=== PATIENT | male | born 1955 | race Caucasian/White ===

== ENCOUNTER 2024-06-19 12:14 | Emergency (ER) | payer MEDICARE, SELFPAY ==
[2024-06-19 12:17] VITALS: BP 135/89
--- NOTE | 2024-06-19 12:47 | ED.GENMED ---
History of Present Illness
General
Chief Complaint: Catheter/Tube Problem
Source: half-way ([facility] nurse, Svetlana)
Exam Limitations: none
Time Seen by Provider: 06/19/24 12:34
Nursing documentation reviewed up to this point in time: agreed with
History of Present Illness
History of Present Illness:
the patient is a 68 yr old resident of [facility] who was sent for displacement of his suprapubic catheter. Staff report that he saw his urologist yesterday for a routine visit and had his catheter replaced for chronic urinary retention. they
suspect that the office did not blow up the balloon properly bc it dislodged without trauma. patient denies all complaints, including pain. Staff says he has not urinated in several hours and needs it replaced. Pt is a very vague historian. Staff
denies any fever, n/v, or mental changes.
Past History
Past History
ED Past Medical History: Other (malnutrition, BPH)
ED Past Surgical History: Other
Social History
Tobacco: Other
Alcohol: Other
Drug: Other
Personal: Single
Living: half-way
Employment: Other
Family History
Family History: Unable to obtain
Review of Systems
Review of Systems
Allergies reviewed?: Yes
Unable to obtain full review of systems at this time due to: other (vague historian, flat affect)
Other source history: half-way
All Other Systems: Not applicable
Constitutional: Reports chills; Denies fever
Phy Exam
Physical Exam
Physical Exam:
Physical Exam
General: no apparent distress, not acutely ill. Flat affect. Barely interactive but appears comfortable
Neck: supple. no meningeal signs. normal psoterior pharynx
Heart: s1/s2 regular rate and rhythm, no murmur. equal radial pulses.
Lungs: no acute respiratory distress. clear bilaterally
Abdomen: normal bowel sounds. not tender. no CVAT
Neuro: alert and oriented. no focal neurological deficits
Skin: Suprapubic wound
Psychiatric: well kept. interactive and cooperative
Extremities: no edema. no calf tenderness. negative homans. good distal pulses
Course
Orders/Labs/Results
Orders:
Orders
06/19/24 12:46
Heredia Placement- Treatment ONCE
Reason for insertion: Urology Determination
06/19/24 15:01
UROLOGY CONSULT Urgent
Consulting Provider: Thom Merchant
Was physician already notified: Yes
Comment: catheter replacement
06/19/24 15:08
Lidocaine 2% [Lidocaine Uro-Jet 2%] 2 syringe .ROUTE .STK-MED ONE
06/19/24 16:53
CefTRIAXone [Rocephin] 1,000 mg Intramuscular Injection 0 ml IM ONCE
Vital Signs
Initial and Last Documented VS:
Initial Vital Signs
Temp Pulse Resp BP Pulse Ox
98.6 F 92 20 135/89 99
06/19/24 12:17 06/19/24 12:17 06/19/24 12:17 06/19/24 12:17 06/19/24 12:17
Last Documented Vital Signs
Temp Pulse Resp BP Pulse Ox
98.2 F 76 18 123/84 97
06/19/24 15:09 06/19/24 15:09 06/19/24 13:00 06/19/24 15:09 06/19/24 15:09
MDM/Problems Addressed
Differential Diagnosis Includes:
traumtaic dislodge of suprapubic cath, dislodged catheter from balloon not being inflated
MDM/Problems Addressed:
pt presents with acute on chronic urinary retention
Chronic conditions affecting care:
chronic urinary retention
Acute Exacerbation and/or Progression of Chronic Illness:
pt presents with acute on chronic urinary retention and chronic BPH
*Pulse Oximetry
Patient hypoxic: no
*EKG
Interpreted by ED Provider?: NA
*Back Strip Machine Operator Interpretation
Rate: Back Strip Machine Operator- N/A
*Critical Care Note
Total Time (30-74mins, 75-104mins- exclusive of procedures): Not Applicable
Update Note
Update Note:
5:00 PM patient remains well-appearing. I tried to pass a catheter through patient's suprapubic lumen site hit resistance. Urology, Dr. Merchant, came down and placed a Heredia catheter in patient's penis. Urology instructed that patient should be
seen in office in about 1 month for catheter to be replaced.
ED Attending Note
-
Portions of this chart may have been created with voice recognition software.� Occasional wrong word or��sound alike� substitutions may have occurred due to the inherent limitations of voice recognition software.
Discharge Plan
Departure
Patient Disposition: Home (Routine Discharge)
Date of Disposition: 06/19/24
Time of Disposition: 16:57
Patient with high blood pressure during this ER visit?: No
Condition: Good
Covid-19: Not Applicable
Discharge Problem:
Heredia catheter in place
Instructions: How to Care for Your Heredia Catheter, Male
Prescriptions:
New
cephalexin 500 mg capsule
500 mg PO BID 7 Days Qty: 14 0RF
Referrals:
Thom Merchant MD [Active] - (See in about 1 month for change of catheter )
Activity Restrictions/Additional Instructions:
Please change the dressing on the suprapubic wound later today, and at least once a day to control bleeding. Please start giving the patient Keflex tomorrow morning. The patient will need to follow-up with urology in about 1 month
Interventions
Interventions:
*Risk Screen - Suicide Last Done: 06/19/24 12:17
*General Assessment Last Done: 06/19/24 12:17
*Neglect/Abuse Screening Last Done: 06/19/24 12:17
PI-Nzpjog-Gpyjarqvpo Assessment Last Done: 06/19/24 14:00
ED-Male Genitourinary Assessment Last Done: 06/19/24 14:00
Discharge Date and Time
Print Language: VIETNAMESE
[2024-06-19 13:00] VITALS: BP 137/91; BMI 23.7
[2024-06-19 15:09] VITALS: BP 123/84
[2024-06-19] MEDS: ROCEPHIN 2.8571 MG IM (18:05)
[2024-06-19 18:20] VITALS: BP 126/88
== END 2024-06-19 18:59 | disposition home or self-care (01) ==
LOC: EMR 12:14
PROVIDERS: CONSULT PHYSICIAN Surgery; EMERGENCY PHYSICIAN Emergency Medicine; FAMILY PHYSICIAN Internal Medicine
DX: Z46.6 Encounter for fitting and adjustment of urinary device (principal)
CPT/HCPCS: 99282; 51702; 96372

== ENCOUNTER 2024-11-15 03:06 | Inpatient (IN) | payer MEDICARE, SELFPAY ==
[2024-11-14 23:42] VITALS: BP 188/109; BMI 24.7
--- NOTE | 2024-11-14 23:58 | ED.GENMED ---
History of Present Illness
General
Chief Complaint: Catheter/Tube Problem
Source: patient
Exam Limitations: none
Time Seen by Provider: 11/14/24 23:37
History of Present Illness
History of Present Illness:
69-year-old male presents from [facility] with report from EMS stating that there is blood in the Heredia catheter. Patient has chronic indwelling Heredia catheter secondary to enlarged prostate and urinary retention. Patient poor historian. He is
unaware about the blood. He notes some pain to the lower abdomen.
Past History
Past History
ED Past Medical History: Other (malnutrition, BPH)
ED Past Surgical History: Other
Social History
Tobacco: Other
Alcohol: Other
Drug: Other
Personal: Single
Living: long term
Employment: Other
Family History
Family History: Unable to obtain
Phy Exam
Physical Exam
Physical Exam:
General: Well-appearing male no acute respiratory distress
HEENT: Normocephalic mucosa dry
Heart: Tachycardic irregular
Lungs: Clear no wheeze
Abdomen soft mild suprapubic discomfort
exam: Blood coming from the urethral meatus however there is no Heredia catheter.
Extremities: No cyanosis
Course
Orders/Labs/Results
Orders:
Orders
11/14/24 23:46
Complete Blood Count/With Diff Urgent
Comprehensive Metabolic Panel Urgent
Lactic Acid Q4H
Comment: CANCEL 2nd LACTIC ACID IF 1st LACTIC ACID IS LESS THAN 2
Urinalysis Reflex To Culture Urgent
Date Specimen was Collected: 11/15/24
Time Specimen was Collected: 00:08
Blood Culture Q30M
[place] Source: Blood/Venous
Specimen Description:
11/14/24 23:48
COVID-19 Antigen Urgent
Source: Nasal Swab
Influenza A+B Rapid Molecular Urgent
[place] Source: Nasal Swab
Specimen Description:
11/15/24 00:09
Blood Culture Q30M
[place] Source: Blood/Venous
Specimen Description:
11/15/24 00:13
Urine Microscopic Reflex Cult Urgent
Urine Culture Urgent
[place] Source: U
Specimen Description:
Date Specimen was Collected: 11/15/24
Time Specimen was Collected: 00:08
11/15/24 00:18
Heredia Placement- Treatment ONCE
Reason for insertion: Chronic Heredia on Admit
Heredia Catheter [Catheter- Indwelling] As Directed
Reason for insertion: Chronic Heredia on Admit
Size: 18
Type: Indwelling
11/15/24 00:49
0.9% Sodium Chloride 1000 ml [Nss] 1,000 ml IV BOLUS
11/15/24 00:57
CR Chest Portable - 1 View Urgent
Comment:
Reason For Exam: weakness
Reason Study Needs to be Portable: Patient Unstable
11/15/24 01:23
Continous Bladder Irrigation As Directed
Solution: nss
11/15/24 01:33
CefTRIAXone [Rocephin] 1,000 mg IV NOW STA
11/15/24 01:40
Piperacillin/Tazo 3.375 Gram [Zosyn] 3.375 gram in 50 ml IV NOW
Potassium Chloride Powder [Klor-Con] 40 meq PO NOW STA
11/15/24 01:41
Add On- LAB Urgent
Tests Added?: magnesium
Vancomycin [Vancocin] 1,500 mg 0.9% Sodium Chloride 500 ml [Nss] 500 ml IV NOW
11/15/24 04:00
Lactic Acid Routine
Abnormal Lab Results
11/15/24 11/15/24
00:09 00:13
WBC 22.8 H 10^3/uL
(4.8-10.8)
RBC 4.33 L 10^6/uL
(4.70-6.10)
Hgb 12.8 L g/dL
(13.0-18.0)
Hct 37.3 L %
(39.0-52.0)
Abs Immat Gran (auto) 0.2 H 10^3/uL
(0-0.05)
Absolute Neuts (auto) 20.8 H 10^3/uL
(1.4-6.5)
Absolute Lymphs (auto) 0.7 L 10^3/uL
(1.2-3.4)
Absolute Monos (auto) 1.1 H 10^3/uL
(0.1-0.6)
Immature Gran % 0.7 H %
(0-0.5)
Neutrophils % 91.1 H %
(42.2-75.2)
Lymphocytes % 3.3 L %
(20.5-51.1)
Sodium 129 L mmol/L
(135-145)
Potassium 3.4 L mmol/L
(3.5-5.1)
Chloride 92 L mmol/L
(98-107)
Carbon Dioxide 20 L mmol/L
(22-30)
BUN 22 H mg/dl
(9-20)
Creatinine 1.6 H mg/dL
(0.7-1.3)
Glucose 223 H mg/dl
(70-99)
Lactic Acid 3.3 H mmol/L
(0.7-2.0)
Ur Occult Blood Reflex 4+ A
(Negative)
Urine RBC >100 A /HPF
(0-2)
Urine Bacteria (Reflex) Many A
(Negative)
Urine Albumin (Reflex) 3+ A
(Neg - Trace)
11/15/24 00:09
11/15/24 00:09
Vital Signs
Initial and Last Documented VS:
Initial Vital Signs
Temp Pulse Resp BP Pulse Ox
96.6 F L 119 18 188/109 97
11/14/24 23:42 11/14/24 23:42 11/14/24 23:42 11/14/24 23:42 11/14/24 23:42
Last Documented Vital Signs
Temp Pulse Resp BP Pulse Ox
99.0 F 118 24 140/84 97
11/15/24 01:27 11/15/24 01:00 11/15/24 01:00 11/15/24 00:07 11/14/24 23:42
MDM/Problems Addressed
Differential Diagnosis Includes:
Patient presents after Heredia catheter problems. On exam there is no Heredia catheter present. Heredia catheter looks to have been removed perhaps without deflating the balloon given the blood. On exam patient has a temperature of 96.5 does feel cool
to the touch. He is tachycardic. Will check labs blood lactic acid urinalysis COVID and flu test. Heredia will be placed
*Critical Care Note
Total Time (30-74mins, 75-104mins- exclusive of procedures): Not Applicable
Update Note
Update Note:
Patient now has three-way Heredia catheter receiving continuous bladder irrigation. Patient septic with white blood cell count 22,000, lactic acid 3.3 likely source is urine. Vancomycin Zosyn and fluids ordered added magnesium level and ordered oral
potassium. Blood pressures remained stable. Will admit to hospital. Discussed with emergency room attending
ED Attending Note
-
Portions of this chart may have been created with voice recognition software.� Occasional wrong word or��sound alike� substitutions may have occurred due to the inherent limitations of voice recognition software.
Discharge Plan
Departure
Patient Disposition: Admit
Date of Disposition: 11/15/24
Time of Disposition: 01:45
Presentation/result/management discussed w/ accepting MD/DO: Hospitalist
Discharge Problem:
Sepsis, Acute UTI
Prescriptions:
No Action
acetaminophen 325 mg Tablet
650 mg PO Q6H PRN (Reason: temp >100.4/ mild pain)
sennosides 8.6 mg Tablet
8.6 mg PO BID
magnesium hydroxide [Milk of Magnesia] 400 mg/5 mL Suspension
30 ml PO DAILY PRN (Reason: no BM in 3 days)
tamsulosin 0.4 mg Capsule
0.4 mg PO BID
bisacodyl 10 mg Suppository
10 mg WV DAILY PRN (Reason: constipation)
Fleet Enema 19-7 gram/118 mL Enema
118 ml WV DAILYPRN PRN (Reason: if suppository ineffective)
nystatin 100,000 unit/gram Powder
1 applic TOPICAL BID
Rx Instructions:
apply to groin day and evening shift for candidiasis
docusate sodium 100 mg Tablet
100 mg PO BID
omeprazole magnesium [Prilosec OTC] 20 mg Tablet,Delayed Release (Dr/Ec)
20 mg PO DAILY
cholecalciferol (vitamin D3) 25 mcg (1,000 unit) Tablet
25 mcg PO DAILY
Referrals:
UNKNOWN - PT NOT,INTERVIEWE [Family Provider] -
Interventions
Interventions:
*Risk Screen - Suicide Last Done: 11/14/24 23:42
*General Assessment Last Done: 11/14/24 23:42
*Neglect/Abuse Screening Last Done: 11/14/24 23:42
ED- Fall Risk Assessment Last Done: 11/15/24 01:17
*ED COVID-19 Vaccine History Last Done: 11/14/24 23:42
OE-Fxiyae-Yzakzqursa Assessment Last Done: 11/15/24 00:00
ED-Male Genitourinary Assessment Last Done: 11/15/24 00:00
Discharge Date and Time
Print Language: MALTESE
[2024-11-15] VITALS (31 sets, daily range): BP systolic 111–149; BP diastolic 71–111; PULSE 107–118; BMI 23.1
[2024-11-15 00:37] LABS: Urine Albumin 3+ (Neg - Trace); Urine Bilirubin Negative (Negative); Urine Character Very Cloudy (Clear); Urine Color Red; Urine Glucose Negative (Negative); Urine Ketone Negative (Negative); Urine Leukocyte Negative (Negative); Urine Nitrite Negative (Negative); Urine Occult Blood 4+ (Negative); Urine Urobilinogen Negative (Neg - 1+)
[2024-11-15 00:41] LABS: Lactic Acid 3.3 mmol/L (0.7-2.0)
[2024-11-15 00:43] LABS: ALT (SGPT) 15 U/L (0-50); AST (SGOT) 25 U/L (17-59); Albumin 4.7 g/dl (3.5-5.0); Alkaline Phosphatase 108 U/L (38-126); Blood Urea Nitrogen 22 mg/dl (9-20); Calcium 9.5 mg/dl (8.4-10.2); Carbon Dioxide 20 mmol/L (22-30); Chloride 92 mmol/L (98-107); Estimated Creatinine Clearance 37 ml/min; Glucose 223 mg/dl (70-99); Potassium 3.4 mmol/L (3.5-5.1); Sodium 129 mmol/L (135-145); Total Bilirubin 0.4 mg/dl (0.2-1.3); Total Protein 7.7 g/dl (6.3-8.2); eGFR 46.64
[2024-11-15 00:52] LABS: Hematocrit 37.3 % (39.0-52.0); Hemoglobin 12.8 g/dL (13.0-18.0); Mean Corp Hgb Conc. 34.3 g/dL (33.0-37.0); Mean Corpuscular Hgb 29.6 pg (27.0-31.0); Mean Corpuscular Volume 86.1 fL (80.0-94.0); Mean Platelet Volume 9.7 fL (7.4-10.4); Platelet Count 281 10^3/uL (130-400); Red Blood Cell Count 4.33 10^6/uL (4.70-6.10); Red Cell Dist. Width 13.6 % (11.5-14.5); White Blood Cell Count 22.8 10^3/uL (4.8-10.8)
[2024-11-15 00:56] LABS: COVID-19 Antigen Negative (Negative)
[2024-11-15 01:00] LABS: Urine Red Blood Cell >100 /HPF (0-2)
[2024-11-15 01:01] LABS: Urine Amorphous Seen; Urine Bacteria Many (Negative)
[2024-11-15 01:02] LABS: Urine Squamous Cell SEEN /LPF (Few)
[2024-11-15] MEDS: NSS 1000 IV (01:22)
[2024-11-15 01:37] LABS: % Basophils 0.2 % (0-2); % Immature Granulocytes 0.7 % (0-0.5); % Lymphocytes 3.3 % (20.5-51.1); % Monocytes 4.7 % (1.7-9.3); % Neutrophils 91.1 % (42.2-75.2); Absolute Immature Granulocytes 0.2 10^3/uL (0-0.05); Absolute Lymphocytes 0.7 10^3/uL (1.2-3.4); Absolute Monocytes 1.1 10^3/uL (0.1-0.6); Absolute Neutrophils 20.8 10^3/uL (1.4-6.5); Nucleated Red Blood Cells % 0 % (-)
[2024-11-15] MEDS: ROCEPHIN 1000 MG IV ×2 (01:39→11:07)
[2024-11-15] MEDS: KLOR-CON 40 MEQ PO (02:00)
[2024-11-15] MEDS: ZOSYN 50 IV (02:00)
[2024-11-15 02:19] LABS: Magnesium 1.6 mg/dl (1.6-2.3)
--- NOTE | 2024-11-15 02:22 | HPS.HSE ---
Family Physician
-
Family Physician: INTERVIEWE UNKNOWN - PT NOT
Chief Complaint
-
Heredia Problem
History of Present Illness
Patient is a 69y M with PMH significant for BPH and chronic Heredia who [place] for evaluation of 'blood in the Heredia'. Patient aware that he was sent for some problem with his Heredia, but does not seem able to further explain.
He can provide no details regarding recent events. He denies any pain at present. He is awake and follows commands. On arrival to the ED, no Heredia catheter was appreciated. Patient had bleeding from the urethral meatus.
A 3-way Heredia catheter was placed in the ED for return of grossly bloody urine. CBI has been initiated.
Patient denies any recent issues including fevers, chills, N/V/D, cough, etc. He cannot explain to me why he lives in a [place] and he is not certain how long he has had a Heredia catheter in place.
Medical History
Past Medical History
Past Medical History: Reports Other
Additional Past Medical History:
BPH / Chronic SONG
GERD
Past Surgical History: Reports Other
Additional Past Surgical History:
TURP
Suprapubic Catheter Placement / Removal
Social History
Tobacco: Non-smoker
Alcohol: None
Drug: None
Living: Jail
Family History
Family History: Not pertinent
Allergies / Home Medications
Allergies reflects when Allergies were last updated in [facility].
Home Medications with original date entered in [facility]
Allergy/Medication List:
Allergies
Allergy/AdvReac Type Severity Reaction Status Date / Time
No Known Allergies Allergy Verified 11/15/24 01:42
Home Medications
acetaminophen 325 mg tablet 650 mg PO Q6H PRN temp >100.4/ mild pain 11/15/24
bisacodyl 10 mg rectal suppository 10 mg TN DAILY PRN constipation 11/15/24
cholecalciferol (vitamin D3) 25 mcg (1,000 unit) tablet 25 mcg PO DAILY 11/15/24
docusate sodium 100 mg tablet 100 mg PO BID 11/15/24
magnesium hydroxide 400 mg/5 mL oral suspension (Milk of Magnesia) 30 ml PO DAILY PRN no BM in 3 days 11/15/24
nystatin 100,000 unit/gram topical powder 1 applic topical BID 11/15/24
omeprazole magnesium 20 mg tablet,delayed release (Prilosec OTC) 20 mg PO DAILY 11/15/24
sennosides 8.6 mg tablet 8.6 mg PO BID 11/15/24
sodium phosphates 19 gram-7 gram/118 mL enema (Fleet Enema) 118 ml TN DAILYPRN PRN if suppository ineffective 11/15/24
tamsulosin 0.4 mg capsule 0.4 mg PO BID 11/15/24
Review of Systems
-
History Source: Patient
A 12 point ROS was completed and negative except as noted: Yes
Constitutional: Denies Fever or Chills
Respiratory: Denies Cough or Trouble Breathing
Cardiac: Denies Chest Pain or Palpitations
Abdomen/GI: Denies Abdominal Pain, Nausea, Vomiting or Diarrhea
: Reports Bleeding
Musculoskeletal: Denies Joint Pain or Edema
Neurological: Denies Dizzy or Headache
Physical Exam
Vital Signs
Vital Signs
Temp Pulse Resp BP Pulse Ox
99.0 F 118 24 140/84 97
11/15/24 01:27 11/15/24 01:00 11/15/24 01:00 11/15/24 00:07 11/14/24 23:42
Physical Exam
General: Other (69y M in contracted / positioning. Awake and answers questions / follows commands. Mildly pale appearing.)
HEENT: PERRLA and Other (Dry MM. Neck supple.)
Respiratory: Clear; No Wheezes, Rales or Rhonchi
Cardiac: S1/S2 and Tachycardia; No Murmur
GI: Other (Abdomen is softly distended. No apparent tenderness. No rebound / guarding. Pos BS.)
Genito-urinary: Other (Heredia in place with bleeding from meatus. CBI running with bright red urine in device. Small, well-healed scar from prior SPC.)
Neuro: Awake and Alert (Somewhat sluggish speech at times. Does not answer some questions at all. No focal weakness / sensory deficits appreciated.)
Laboratory Results
-
11/15/24 00:09
11/15/24 00:09
Laboratory Results
Lactic Acid 3.3 mmol/L (0.7-2.0) H 11/15/24 00:09
Lactic Acid Cancelled 11/15/24 00:09
Total Bilirubin 0.4 mg/dl (0.2-1.3) 11/15/24 00:09
AST 25 U/L (17-59) 11/15/24 00:09
ALT 15 U/L (0-50) 11/15/24 00:09
Alkaline Phosphatase 108 U/L (38-126) 11/15/24 00:09
Impression/Plan
-
A/P: Patient is a 69y M with PMH significant for BPH with chronic SONG and chronic indwelling Heredia catheter who was sent from local [place] to [place] ED for evaluation of hematuria and apparent accidental Heredia removal.
Gross Hematuria
Suspected Traumatic Heredia Extraction
BPH / Chronic SONG
- Admit for further evaluation and treatment.
- Maintain current 3-way Heredia catheter and continue CBI to keep urine flowing and free from clots.
- Continue tamsulosin.
- Patient is not on any antiplatelet or anticoagulant medications.
- Urology consulted for further evaluation.
Sepsis - Suspected Source
Lactic Acidosis secondary to the above
- Patient presented with hypothermia, tachycardia and leukocytosis.
- Suspect source with chronic Heredia / recent trauma / etc.
- Continue IV abx pending culture data.
- Supportive care including IVFs, etc.
SANTA
Hyponatremia
Hypokalemia
- No prior labs for comparison, but suspect SANTA secondary to sepsis, bleeding, etc.
- IVF support with LR, maintain Heredia and follow for improvement in labs / lytes.
Cognitive Impairment
- Patient with no significant medical issues beyond BPH / SONG and chronic Heredia.
- Unclear why he resides in [place] - there is note of socioeconomic issues in [place] record which may be contributing.
- Patient does seem to have some difficulty in communicating details of his history, etc.
DVT Prophylaxis: SCDs
Code Status: Full
[2024-11-15] MEDS: VANCOCIN 530 MG IV (03:03)
[2024-11-15 04:15] LABS: Lactic Acid 1.6 mmol/L (0.7-2.0)
[2024-11-15] MEDS: LR 1000 IV ×3 (04:39→21:00)
[2024-11-15 05:33] LABS: Hematocrit 30.1 % (39.0-52.0); Hemoglobin 10.5 g/dL (13.0-18.0)
[2024-11-15 05:34] LABS: Hematocrit 30.8 % (39.0-52.0); Hemoglobin 10.5 g/dL (13.0-18.0); Mean Corp Hgb Conc. 34.1 g/dL (33.0-37.0); Mean Corpuscular Hgb 29.2 pg (27.0-31.0); Mean Corpuscular Volume 85.8 fL (80.0-94.0); Mean Platelet Volume 9.1 fL (7.4-10.4); Platelet Count 231 10^3/uL (130-400); Red Blood Cell Count 3.59 10^6/uL (4.70-6.10); Red Cell Dist. Width 13.6 % (11.5-14.5); White Blood Cell Count 19.4 10^3/uL (4.8-10.8)
--- NOTE | 2024-11-15 05:55 | PTCARENOTE ---
Patient received in room 3365 via stretcher. Assisted patient to ICU bed. Patient received on CBI on bag #4. Urine is bright red. 3 way catheter is intact. Pt's meatus is bloody. Gauze pad applied around penis. Patient is AAOx3 with a very flat
affect. MAEx4. Vancomycin infusing via rt AC 18 g IV.Plan of care for the remainder of the shift reviewed with the patient. Unit orientation completed. Sinus tachy on the monitor with HR 118. Palpable pulses. Breath sounds are clear. SpO2 at 100 %
on room air. Abdomen is round with +BS. Skin is intact. Pneumatic compression sleeves placed. LR initiated at 125 ml/hr. New IV placed on the patient's right arm. The patient repositions himself. Gaudencio bray and personal belongings are within reach.
[2024-11-15 06:00] LABS: Blood Urea Nitrogen 22 mg/dl (9-20); Calcium 8.6 mg/dl (8.4-10.2); Carbon Dioxide 22 mmol/L (22-30); Chloride 100 mmol/L (98-107); Estimated Creatinine Clearance 39 ml/min; Glucose 133 mg/dl (70-99); Potassium 4.4 mmol/L (3.5-5.1); Sodium 131 mmol/L (135-145)
--- NOTE | 2024-11-15 07:19 | W.PN.HOSP.TC ---
Today's Communication/Plan
-
Urology consult
Continue antibiotics
Await cultures
Continue IV fluids
Assessment / Plan
Assessment / Plan
Gen-AAOx3, NAD
HEENT-NC, AT, anicteric, clear oral mm
Neck-supple
CV-tachycardic, reg, no M, +S1/S2
Lungs-clear B/L
Abd-soft, NT, ND
Ext-no edema
Musculoskeletal-no cyanosis, clubbing
Skin-warm and dry
Neuro-grossly non-focal
Psych-calm, cooperative
Sepsis -suspect catheter associated UTI as source. Tachycardic but blood pressure holding. Await cultures, continue antibiotics. Continue IV fluids.
Lactic acidosis due to sepsis, resolved.
Catheter associated UTI -gross hematuria due to traumatic Heredia dislodgment. Suspect patient pull it out himself. Chronic Heredia catheter due to chronic bladder outlet obstruction.
Currently getting CBI. Urology consulted.
CT shows bladder wall thickening and adjacent inflammatory change consistent with cystitis. Hyperattenuating material within the bladder, may represent hemorrhage. Bladder mass cannot be ruled out. Mild bilateral hydronephrosis and bilateral
hydroureter. No obvious stones. Prostatic enlargement.
Renal insufficiency -presumed SANTA. Baseline creatinine unknown. Creatinine down to 1.5, monitor for now.
Hyponatremia -hypovolemic versus SIADH related to bleeding. Sodium improving.
Hypokalemia -improved. Magnesium normal.
Hyperglycemia -glucose 223 last night. Check hemoglobin A1c.
BPH/chronic bladder outlet obstruction
GERD
Cognitive impairment -unknown type.
Full code
Anticipated Discharge: > 48 hours
Subjective/Interval History
-
Date of Service: November 15, 2024
Patient seen and examined. No complaints. Looks uncomfortable.
Objective Data
-
Labs:
Laboratory Results
0111/15/24 11/15/24
00:09 05:22 05:22
WBC 22.8 H 19.4 H
Hgb 12.8 L 10.5 L 10.5 L
Hct 37.3 L 30.1 L
Plt Count 281
Sodium 129 L
Potassium 3.4 L
Chloride 92 L
Carbon Dioxide 20 L
BUN 22 H
Creatinine 1.6 H
Glucose 223 H
Calcium 9.5
Total Bilirubin 0.4
AST 25
ALT 15
Alkaline Phosphatase 108
11/15/24 11/15/24 11/15/24
05:22 11:59 19:59
WBC
Hgb Pending Pending
Hct 30.8 L Pending Pending
Plt Count 231
Sodium 131 L
Potassium 4.4 D
Chloride 100
Carbon Dioxide 22
BUN 22 H
Creatinine 1.5 H
Glucose 133 H
Calcium 8.6
Total Bilirubin
AST
ALT
Alkaline Phosphatase
Vital Signs:
Vital Signs
Temp Pulse Resp BP Pulse Ox
98.3 F 112 19 118/96 100
11/15/24 07:15 11/15/24 04:15 11/15/24 04:15 11/15/24 04:15 11/15/24 05:06
I&O
11/14/24 11/15/24 11/16/24
06:59 06:59 06:59
Intake Total 1870 / 1870
Output Total 4250 / 4250 50 / 50
Balance -2380 / -2380 -50 / -50
Review of Systems
-
History Source: Patient
All other systems: Reviewed and negative
[2024-11-15] MEDS: FLOMAX 0.4 MG PO ×2 (07:58→19:18)
[2024-11-15] MEDS: COLACE 100 MG PO ×2 (07:58→19:18)
[2024-11-15] MEDS: SENOKOT 8.6 MG PO ×2 (07:58→19:17)
[2024-11-15] MEDS: FLUSH (NSS) 1 FLUSH IV ×2 (11:04→11:07)
[2024-11-15] MEDS: STERILE WATER FOR INJECTION 10 ML IV (11:07)
[2024-11-15 12:03] LABS: Glycohemoglobin (HgbA1c) 5.4 % (4.0-5.6)
--- NOTE | 2024-11-15 12:16 | CM ---
CM following re: discharge planning.
Reviewed pt's chart, met with pt.
Pt is a 69 year old male, admitted with primary dx of Sepsis.
Pt reports he has been living at [facility] for the past 1.5 years, prior lived in [facility]. Pt reports he has brother Alexandr, who lives in [facility] and pt does not remember his phone number. Pt reports he ambulates without
assistive devices at [facility]. Pt expressed his desire to return back to [facility] for a intermediate care.
D/C plan: return back to [facility] for a intermediate care.
CM will follow with discharge plan updates as hospitalization progresses.
--- NOTE | 2024-11-15 12:19 | CONS.URO ---
Consultation
-
Performing Provider: Kimfer
Reason for Consultation: Traumatic roland catheter
Medical History
History of Present Illness
69[facility] with history of chronic roland
Patient is a poor historian currently and unsure why he had a catheter placed but thinks it was at least a year ago
Catheter was being exchanged yesterday and he says staff 'caused an injury'
Other reports were suspected self removal of his catheter
He was sent to ER and found to have hematuria/bleeding per meatus
3 way roland was placed and CBI started
CT scan showed some likely blood products in bladder, enlarged prostate approx 130cc, bilateral hydronephrosis to level of bladder
Per reports, prior history of TURP and suprapubic tube
Past Medical History
Past Medical History: Other (BPH / Chronic SONG GERD)
Past Surgical History: Other (TURP, SPT)
Social History
Unable to obtain full social history at this time due to: Other (confusion)
Family History
Family History: Unable to Obtain
Allergies/Home Medications
Allergies
Allergy/AdvReac Type Severity Reaction Status Date / Time
No Known Allergies Allergy Verified 11/15/24 01:42
Home Medications
�Medication �Instructions �Recorded �Confirmed �Type
acetaminophen 325 mg tablet 650 mg PO Q6H PRN temp >100.4/ 11/15/24 11/15/24 History
mild pain
bisacodyl 10 mg rectal suppository 10 mg DC DAILY PRN constipation 11/15/24 11/15/24 History
cholecalciferol (vitamin D3) 25 25 mcg PO DAILY 11/15/24 11/15/24 History
mcg (1,000 unit) tablet
docusate sodium 100 mg tablet 100 mg PO BID 11/15/24 11/15/24 History
magnesium hydroxide 400 mg/5 mL 30 ml PO DAILY PRN no BM in 3 days 11/15/24 11/15/24 History
oral suspension (Milk of Magnesia)
nystatin 100,000 unit/gram topical 1 applic topical BID 11/15/24 11/15/24 History
powder
omeprazole magnesium 20 mg 20 mg PO DAILY 11/15/24 11/15/24 History
tablet,delayed release (Prilosec
OTC)
sennosides 8.6 mg tablet 8.6 mg PO BID 11/15/24 11/15/24 History
sodium phosphates 19 gram-7 118 ml DC DAILYPRN PRN if 11/15/24 11/15/24 History
gram/118 mL enema (Fleet Enema) suppository ineffective
tamsulosin 0.4 mg capsule 0.4 mg PO BID 11/15/24 11/15/24 History
Review of Systems
-
Unable to obtain full review of systems at this time due to: Other (confusion)
Physical Exam
Vital Signs
Vital Signs
Temp Pulse Resp BP Pulse Ox
98.5 F 112 19 118/96 98
11/15/24 11:00 11/15/24 04:15 11/15/24 04:15 11/15/24 04:15 11/15/24 08:09
Lab / Testing Results
Laboratory Results
11/15/24 05:22
Physical Exam
General: Well Developed, Well Nourished and No Apparent Distress
Respiratory: Clear and Non Labored Respirations
GI: Soft and Non Tender
Genito-urinary: Bloody Urine (pink on CBI) and Roland Catheter
Psych: Calm and Confused
Assessment / Plan
-
69M with prostatomegaly and chronic roland catheter
Presented with gross hematuria and urosepsis, likely catheter trauma
CT showing 130cc prostate volume with large intravesical median lobe, bilateral moderate hydroureteronephrosis to level of bladder without acute obstruction
- Continue CBI, irrigation PRN
- Antibiotics for urosepsis pending cultures
- Hydronephrosis likely due to urinary retention/poor placement with the past day's events. No stones or obstruction noted
- Maintain roland catheter at discharge. Recommend follow up with his prior urologist who performed past procedures if that information is available [facility]
[2024-11-15 12:59] LABS: Hematocrit 28.7 % (39.0-52.0)
--- NOTE | 2024-11-15 14:59 | CON.ID ---
Consultation
-
Date/Time Consultation Requested: November 15, 2024 1028
Date/Time Consultation Performed: November 15, 2024 1500
Requesting Provider: Dr. Gideon Currie
Performing Provider: Dr. Karina Leonardo
Reason for Consultation: UTI/bacteremia
Chief Complaint / Past History
Chief Complaint
Bloody urine
History of Present Illness
Patient is a very poor historian. He is a 69-year-old male from [facility] with history of chronic outlet obstruction with chronic indwelling Roland catheter who developed gross hematuria after Roland trauma. He arrived in the ED
yesterday without Roland in place. There was blood coming from the meatus. Three-way Roland catheter placed with return of gross hematuria. White count was elevated. Patient denies fevers or chills. No flank pain. No suprapubic pain.
Past History
Additional Past Medical History:
BPH chronic roland
TURP
Allergy History:
No Known Allergies Allergy (Verified 11/15/24 01:42)
Medications Reviewed: Yes
Current Antibiotics:
Ceftriaxone
Social History
Tobacco: Non-Smoker
Alcohol: None
Drug: None
Living: [facility]
Family History
Family History: Not Pertinent
Review of Systems
Review of Systems
General: Negative Fever or Chills
HEENT: Negative Sinus Problems or Headache
Respiratory: Negative Cough
Gasteroenterology: Negative Nausea, Vomiting or Diarrhea
Endocrine: Negative Weakness
All systems: All other systems were reviewed and were negative
Vital Signs
Temp Pulse Resp BP Pulse Ox
98.5 F 102 22 122/75 99
11/15/24 11:00 11/15/24 14:01 11/15/24 14:01 11/15/24 14:01 11/15/24 14:01
Physical Exam
Physical Exam
Constitutional: No Acute Distress
Eyes: No Conjunctival Hemorrhage and Sclera Anicteric
Cardiovascular: Regular Rate and S1/S2
Pulmonary: Clear
Gastrointestinal: Soft, Non Tender, Non Distended and Normal Bowel Sounds
Genito-Urinary: Roland and Hematuria; Negative CVA Tenderness
Extremities: Negative Edema
Neurological: Awake
Lab / Diagnostic Study Results
11/15/24 05:22
Abs Immat Gran (auto) 0.2 10^3/uL (0-0.05) H 11/15/24 00:09
Absolute Neuts (auto) 20.8 10^3/uL (1.4-6.5) H 11/15/24 00:09
Absolute Lymphs (auto) 0.7 10^3/uL (1.2-3.4) L 11/15/24 00:09
Absolute Monos (auto) 1.1 10^3/uL (0.1-0.6) H 11/15/24 00:09
Absolute Basos (auto) 0.0 10^3/uL (0-0.2) 11/15/24 00:09
Immature Gran % 0.7 % (0-0.5) H 11/15/24 00:09
Neutrophils % 91.1 % (42.2-75.2) H 11/15/24 00:09
Lymphocytes % 3.3 % (20.5-51.1) L 11/15/24 00:09
Monocytes % 4.7 % (1.7-9.3) 11/15/24 00:09
Eosinophils % 0.0 % (0-6) 11/15/24 00:09
Basophils % 0.2 % (0-2) 11/15/24 00:09
Lactic Acid 1.6 mmol/L (0.7-2.0) 11/15/24 03:39
Ur Squamous Epith Cells Seen /LPF (Few) 11/15/24 00:13
Microbiology Results
Micro:
11/15/24 00:09 Blood Culture - Preliminary
Blood/Venous Escherichia coli
Gram Stain - Preliminary
11/15/24 05:22 MRSA Screen - Pending
Nose
11/15/24 00:09 Blood Culture - Pending
Blood/Venous
11/15/24 00:13 Urine Culture - Pending
Urine
11/15/24 00:09 Influenza Types A & B (SAAD) - Final
Nasal Swab Negative for Influenza A & B, NAAT
Negative results must be combined with clinical observations
and patient history.
Nucleic Acid Amplification test (NAAT)performed on the
[employer] platform.
11/15/24 CT a/p: Bladder wall thickening and adjacent inflammatory change, consistent with cystitis.
2. Hyperattenuating material within the urinary bladder, which may represent hemorrhage. Bladder mass is difficult to exclude.
3. Mild bilateral hydronephrosis and bilateral hydroureter. No obstructing stones appreciated.
4. Renal cortical atrophy, right greater than left.
5. Prostatic enlargement.
Assessment / Plan
# E. coli bacteremia - urinary retention source with dislodged roland
# Gross hematuria from roland trauma
# Leukocytosis
# BPH/SONG chronic roland
- Agree with ceftriaxone pending final cx data.
- Follow wbc.
--- NOTE | 2024-11-15 17:08 | PTCARENOTE ---
Pt received in bed @ 0700. AAOx3, but drowsy and forgetful. Generalized weakness. SaO2 98% on room air. Sinus tach on satellite project site monitor. HR 90s - 100s with occasional self terminating peaks to 130s - 140s. Pt with sustained HR at 130s - 150s for 5
minutes. EKG obtained and resulted Sinus Tach and HR returned to 100s. MAP > 65 without pressors. No edema and (+) pedal pulses. Pt NPO. (+) bowel sounds. No bowel movement observed. CBI infusing, pink output in with bright red blood appearance bag.
Clots observed are sparse. LR infusing @ 125 ml/hr.
--- NOTE | 2024-11-15 19:15 | PTCARENOTE ---
Patient received lying in bed, awake, alert and oriented. He c/o feeling hungry. He currently denies pain. He is ST on CM, HR 110-120s. Temp 101.1F. 650mg Tylenol given po prn. BBS clear but diminished posteriorly. S1S2 tachycardic with soft murmur.
He has shaking chills. Abdomen is soft. He feels very warm, mouth is dry, cheeks are flushed. Positive pulses x 4 extremities, no edema. Oral care rendered. 3 way roland catheter with CBI, CBI moderately infusing. Urine is red punch color. Orders
received to resume diet. Patient ate turkey sandwich and applesauce without issues. No N/V. No CP or SOB.
[2024-11-15] MEDS: TYLENOL 650 MG PO (19:17)
[2024-11-15 20:32] LABS: Hematocrit 26.8 % (39.0-52.0); Hemoglobin 9.2 g/dL (13.0-18.0)
[2024-11-16] VITALS (15 sets, daily range): BP systolic 102–156; BP diastolic 63–114; BMI 23.7
--- NOTE | 2024-11-16 01:00 | PTCARENOTE ---
Report called to CORRIE Selby in IMU. Questions answered. Patient belongings gathered.
--- NOTE | 2024-11-16 02:05 | PTCARENOTE ---
Patient transferred to IMU room 3355 accompanied by RN and PCT.
[2024-11-16] MEDS: LR 1000 IV (04:52)
[2024-11-16 05:42] LABS: % Basophils 0.4 % (0-2); % Eosinophils 0.3 % (0-6); % Immature Granulocytes 0.3 % (0-0.5); % Lymphocytes 6.5 % (20.5-51.1); % Monocytes 9.1 % (1.7-9.3); % Neutrophils 83.4 % (42.2-75.2); Absolute Lymphocytes 0.5 10^3/uL (1.2-3.4); Absolute Monocytes 0.7 10^3/uL (0.1-0.6); Absolute Neutrophils 6.3 10^3/uL (1.4-6.5); Hemoglobin 8.9 g/dL (13.0-18.0); Mean Corp Hgb Conc. 35.6 g/dL (33.0-37.0); Mean Corpuscular Hgb 30.3 pg (27.0-31.0); Mean Platelet Volume 9.7 fL (7.4-10.4); Nucleated Red Blood Cells % 0 % (-); Platelet Count 187 10^3/uL (130-400); Red Blood Cell Count 2.94 10^6/uL (4.70-6.10); Red Cell Dist. Width 13.8 % (11.5-14.5); White Blood Cell Count 7.5 10^3/uL (4.8-10.8)
[2024-11-16 06:04] LABS: Calcium 8.7 mg/dl (8.4-10.2); Carbon Dioxide 24 mmol/L (22-30); Chloride 101 mmol/L (98-107); Estimated Creatinine Clearance 39 ml/min; Glucose 97 mg/dl (70-99); Sodium 132 mmol/L (135-145)
[2024-11-16 06:13] LABS: Blood Urea Nitrogen 15 mg/dl (9-20); Potassium 3.7 mmol/L (3.5-5.1)
--- NOTE | 2024-11-16 06:39 | PTCARENOTE ---
Pt presents with slow speech, flat affect, withdrawn, drowsy. Continues with 3-way catheter, CBI, draining bloody tinged urine. Pt denies pain/symptoms at this time. Continues with ST on CM, rates as documented. Call bray within reach. Care ongoing.
--- NOTE | 2024-11-16 07:13 | PTCARENOTE ---
Pt sleeping, with CBI running on bag 16 light pink in color.
[2024-11-16] MEDS: COLACE 100 MG PO ×2 (08:25→20:01)
[2024-11-16] MEDS: FLOMAX 0.4 MG PO ×2 (08:25→20:01)
[2024-11-16] MEDS: SENOKOT 8.6 MG PO ×2 (08:25→20:01)
--- NOTE | 2024-11-16 08:42 | W.PN.URO.CBU ---
Today's Communication / Plan
-
Maintain CBI
Clamp trial tomorrow
Continue antibiotics for sepsis
Assessment / Plan
-
69M with BPH/prostatomegaly and chronic roland catheter
Presented with gross hematuria and urosepsis, likely catheter trauma
CT showing 130cc prostate volume with large intravesical median lobe, bilateral moderate hydroureteronephrosis to level of bladder without acute obstruction
- Continue CBI, irrigation PRN
- Clamp trial of CBI tomorrow AM
- Antibiotics for urosepsis pending cultures
- Hydronephrosis likely due to urinary retention/poor catheter placement prior to admission. No stones or obstruction noted
- Maintain roland catheter at discharge. Recommend follow up with his prior urologist who performed past procedures if that information is available at [facility]
Diagnosis
-
Date of Service: November 16, 2024
-
Patient Diagnosis:
Gross hematuria
BPH
Urinary retention with chronic roland catheter
Post Op Day:
Subjective
-
No complaints this AM
not conversational
Objective
-
Vital Signs
Temp Pulse Resp BP Pulse Ox
98.2 F 101 20 112/64 99
11/16/24 07:50 11/16/24 06:00 11/16/24 06:00 11/16/24 06:00 11/16/24 06:36
Intake and Output
11/15/24 11/16/24 11/17/24
06:59 06:59 06:59
Intake Total 1870 / 1870 2735 / 2735
Output Total 4250 / 4250 7550 / 7550 300 / 300
Balance -2380 / -2380 -4815 / -4815 -300 / -300
Intake:
Oral fluids 240 / 240 360 / 360
IV fluids (Total) 1000 / 1000 2375 / 2375
Lr 1,000 ml @ 125 mls/hr IV . 875 / 875
Q8H KRISS Rx#:[id number]
nss 1000 / 1000 1500 / 1500
IV piggybacks 630 / 630
nss 100 / 100
Roland intermittent irrigation 0 / 0
Output:
Urine, Roland 1100 / 1100 5050 / 5050
True Urine Output from CBI 3150 / 3150 2500 / 2500 300 / 300
Laboratory Results
11/16/24 05:01
11/16/24 05:01
Physical Exam
-
General - well developed, well nourished, no acute distress
Chest - unlabored
Abdomen - soft, non-tender
- roland light pink on slow CBI
--- NOTE | 2024-11-16 10:50 | W.PN.ID1 ---
Date of Service
Date of Service: November 16, 2024
Today's Communication
Continue ceftriaxone.
Assessment / Plan
# E. coli bacteremia - urinary retention source with dislodged roland
# Gross hematuria from roland trauma
# Leukocytosis - resolved
# BPH/urinary retention with chronic roland
- CT a/p mild bilateral hydroureteronephrosis from urinary retention
- Continue ceftriaxone pending final cx data.
Chief Complaint
-: UTI and Bacteremia
Subjective / Review of Systems
No complaints.
Vital Signs / Physical Exam
Vital Signs
Vital Signs
Temp Pulse Resp BP Pulse Ox
98.2 F 101 20 112/64 98
11/16/24 07:50 11/16/24 06:00 11/16/24 06:00 11/16/24 06:00 11/16/24 09:33
Physical Exam
Constitutional: No Acute Distress and Comfortable
Pulmonary: Clear
Gastrointestinal: Non Tender and Non Distended
Genito-Urinary: Roland and Hematuria; Negative CVA Tenderness
Neurological: Awake and Alert
Objective Data
Lab Data
Lab Results
11/16/24 05:01
11/16/24 05:01
Estimated Creat Clear 39 ml/min 11/16/24 05:01
Lactic Acid 1.6 mmol/L (0.7-2.0) 11/15/24 03:39
Total Bilirubin 0.4 mg/dl (0.2-1.3) 11/15/24 00:09
AST 25 U/L (17-59) 11/15/24 00:09
ALT 15 U/L (0-50) 11/15/24 00:09
Alkaline Phosphatase 108 U/L (38-126) 11/15/24 00:09
Most recent labs reviewed.
Micro Results:
11/15/24 00:09 Blood Culture - Preliminary
Blood/Venous Escherichia coli
Gram Stain - Preliminary
11/15/24 00:13 Urine Culture - Preliminary
Urine Gram negative bacilli
11/15/24 00:09 Blood Culture - Preliminary
Blood/Venous Gram negative bacilli
Gram Stain - Preliminary
11/15/24 05:22 MRSA Screen - Final
Nose No Methicillin Resistant Staphylococcus aureus isolated.
11/15/24 00:09 Influenza Types A & B (SAAD) - Final
Nasal Swab Negative for Influenza A & B, NAAT
Negative results must be combined with clinical observations
and patient history.
Nucleic Acid Amplification test (NAAT)performed on the
[employer] platform.
11/15/24 CT a/p: Bladder wall thickening and adjacent inflammatory change, consistent with cystitis.
2. Hyperattenuating material within the urinary bladder, which may represent hemorrhage. Bladder mass is difficult to exclude.
3. Mild bilateral hydronephrosis and bilateral hydroureter. No obstructing stones appreciated.
4. Renal cortical atrophy, right greater than left.
5. Prostatic enlargement.
[2024-11-16] MEDS: FLUSH (NSS) 1 FLUSH IV ×2 (11:06→12:53)
[2024-11-16] MEDS: STERILE WATER FOR INJECTION 10 ML IV (11:06)
[2024-11-16] MEDS: ROCEPHIN 1000 MG IV (11:06)
--- NOTE | 2024-11-16 17:27 | W.PN.HOSP.TC ---
Today's Communication/Plan
-
continue outlined plan
Assessment / Plan
Assessment / Plan
Assessment:
Sepsis (fever, tachycardia) from CAUTI - present on arrival
E. coli bacteremia
- continue IV Rocephin, day 2 per ID
Gross hematuria from Heredia trauma
BPH/urinary retention with chronic Heredia
- CT: shows bladder wall thickening and adjacent inflammatory change consistent with cystitis. Hyperattenuating material within the bladder, may represent hemorrhage. Bladder mass cannot be ruled out. Mild bilateral hydronephrosis and bilateral
hydroureter. No obvious stones. Prostatic enlargement.
- on CBI, prn irrigations
- Urology following
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 Baseline creatinine unknown. Creatinine down to 1.5, monitor for now.
Hyponatremia - hypovolemic versus SIADH related to bleeding. Sodium improving.
Hypokalemia - improved. Magnesium normal.
Hyperglycemia - hemoglobin A1c 5.4%
GERD
Cognitive impairment -unknown type.
DVT ppx: SCDs
Code: Full
Anticipated Discharge: > 48 hours
Subjective/Interval History
-
Date of Service: November 16, 2024
no complaints
Objective Data
-
Labs:
Laboratory Results
11/16/24
05:01
WBC 7.5
Hgb 8.9 L
Hct 25.0 L
Plt Count 187
Sodium 132 L
Potassium 3.7
Chloride 101
Carbon Dioxide 24
BUN 15
Creatinine 1.5 H
Glucose 97
Calcium 8.7
Vital Signs:
Vital Signs
Temp Pulse Resp BP Pulse Ox
98.2 F 91 21 116/76 97
11/16/24 11:50 11/16/24 15:00 11/16/24 15:00 11/16/24 14:00 11/16/24 15:00
I&O
11/15/24 11/16/24 11/17/24
06:59 06:59 06:59
Intake Total 1870 / 1870 2735 / 2735 750 / 750
Output Total 4250 / 4250 7550 / 7550 300 / 300
Balance -2380 / -2380 -4815 / -4815 450 / 450
Physical Exam
-
General: No Apparent Distress
HEENT: Normocephalic and Atraumatic
Respiratory: Negative Wheezes
Cardiac: Regular Rhythm and S1/S2
Genito-urinary: Bloody Urine and Heredia
Neuro: AO x 3
Hematologic / Lymphatic: No Lymphadenopathy
Psych: Calm
Data Reviewed
-
Total Time Spent with Patient (in minutes): 44
Labs: Labs Reviewed by me
--- NOTE | 2024-11-16 18:39 | PTCARENOTE ---
Pt Hr increasing from 148 to [address] tt
--- NOTE | 2024-11-16 18:56 | PTCARENOTE ---
Pt had bm hr now 116. EKG ordered by DR Warner Pt states no CP no SOB .
[2024-11-16] MEDS: TYLENOL 650 MG PO (20:01)
--- NOTE | 2024-11-16 20:31 | PTCARENOTE ---
Caring for pt overnight. aaox3, slow speech, nods head, very flat affect, withdrawn. nsr/st. remains on RA. CBI running, punch color. Pt denies any pain or spasms. Asked pt why he is living in [facility], if there was a medical reason or mental
disorder, pt stated he could not remember, his brother had him stay at [facility]. No issues. bedrest for now. Bed alarm on, call bray in reach.
At change of shift EKG was done for pt increased HR at the end of day shift. Sent overnight [employer] EKG. Reads ST. Rhythm now is SR HR in 90's. Pt axillary temp 101.2, oral temp 99.5. Tylenol given, No new orders. will monitor.
[2024-11-17] VITALS (16 sets, daily range): BP systolic 107–132; BP diastolic 69–97; PULSE 93; O2SAT 98; BMI 23.4
[2024-11-17 05:41] LABS: Hematocrit 25.9 % (39.0-52.0); Hemoglobin 8.8 g/dL (13.0-18.0); Mean Corpuscular Hgb 29.1 pg (27.0-31.0); Mean Corpuscular Volume 85.8 fL (80.0-94.0); Mean Platelet Volume 9.3 fL (7.4-10.4); Platelet Count 175 10^3/uL (130-400); Red Blood Cell Count 3.02 10^6/uL (4.70-6.10); Red Cell Dist. Width 13.7 % (11.5-14.5); White Blood Cell Count 6.5 10^3/uL (4.8-10.8)
--- NOTE | 2024-11-17 06:08 | PTCARENOTE ---
CBI running, still pink punch color, turns red when slowed down. Per urology, hold off on clamping CBI this morning.
[2024-11-17 06:12] LABS: Blood Urea Nitrogen 16 mg/dl (9-20); Calcium 8.7 mg/dl (8.4-10.2); Carbon Dioxide 28 mmol/L (22-30); Chloride 99 mmol/L (98-107); Estimated Creatinine Clearance 37 ml/min; Glucose 102 mg/dl (70-99); Potassium 3.7 mmol/L (3.5-5.1); Sodium 135 mmol/L (135-145); eGFR 46.64
--- NOTE | 2024-11-17 06:42 | PTCARENOTE ---
Confirmed with urology Dr. Church. Bryan CBI.
[2024-11-17] MEDS: SENOKOT 8.6 MG PO (08:19)
[2024-11-17] MEDS: COLACE 100 MG PO ×2 (08:19→21:32)
[2024-11-17] MEDS: FLOMAX 0.4 MG PO ×2 (08:19→21:32)
--- NOTE | 2024-11-17 08:51 | CM ---
Patient from [facility]. Room air. Receiving IV Abx. Clamping trial of CBI. PT Eval 11/15; recommendation return to SNF. OT 11/15 recommends skilled rehab.
Message from Dr Warner; febrile yesterday and still waiting on final cultures. Probably not ready for d/c for 24-48 hours.
Spoke with Jennifer, [facility]; the patient resides at their SNF in LTC on an IN bed hold. Provided clinical update. Per Jennifer, the patient was ambulatory and not receiving PT/OT. The for report [phone] 3rd floor, fax
[phone].
Plan return to [facility] when medically ready.
--- NOTE | 2024-11-17 10:34 | W.PN.ID1 ---
Date of Service
Date of Service: November 17, 2024
Today's Communication
- Continue ceftriaxone (d4).
-At time of discharge, can transition to Bactrim DS 1 tab bid (dose for CrCl>30) through 11/23/24.
Assessment / Plan
# Serratia, E. coli bacteremia - urinary retention source with dislodged roland
# Gross hematuria from roland trauma
# Leukocytosis - resolved
# BPH/urinary retention with chronic roland
- CT a/p mild bilateral hydroureteronephrosis from urinary retention
- Continue ceftriaxone (d4).
-At time of discharge, can transition to Bactrim DS 1 tab bid (dose for CrCl>30) through 11/23/24.
Chief Complaint
-: UTI and Bacteremia
Subjective / Review of Systems
No complaints
Vital Signs / Physical Exam
Vital Signs
Vital Signs
Temp Pulse Resp BP Pulse Ox
98.9 F 80 20 132/84 97
11/17/24 07:48 11/17/24 06:00 11/17/24 06:00 11/17/24 06:00 11/17/24 06:00
Physical Exam
Constitutional: No Acute Distress and Comfortable
Cardiovascular: Regular Rate and S1/S2
Pulmonary: Clear
Gastrointestinal: Non Tender and Non Distended
Genito-Urinary: Roland and Hematuria; Negative CVA Tenderness
Neurological: Awake and Alert
Objective Data
Lab Data
Lab Results
11/17/24 05:24
11/17/24 05:24
Estimated Creat Clear 37 ml/min 11/17/24 05:24
Lactic Acid 1.6 mmol/L (0.7-2.0) 11/15/24 03:39
Total Bilirubin 0.4 mg/dl (0.2-1.3) 11/15/24 00:09
AST 25 U/L (17-59) 11/15/24 00:09
ALT 15 U/L (0-50) 11/15/24 00:09
Alkaline Phosphatase 108 U/L (38-126) 11/15/24 00:09
Most recent labs reviewed.
Micro Results:
11/15/24 00:09 Blood Culture - Final
Blood/Venous Serratia marcescens
Escherichia coli
Gram Stain - Final
11/15/24 00:09 Blood Culture - Preliminary
Blood/Venous Escherichia coli
Gram Stain - Preliminary
11/15/24 00:13 Urine Culture - Final
Urine Escherichia coli
11/15/24 05:22 MRSA Screen - Final
Nose No Methicillin Resistant Staphylococcus aureus isolated.
11/15/24 00:09 Influenza Types A & B (SAAD) - Final
Nasal Swab Negative for Influenza A & B, NAAT
Negative results must be combined with clinical observations
and patient history.
Nucleic Acid Amplification test (NAAT)performed on the
[employer] platform.
11/15/24 CT a/p: Bladder wall thickening and adjacent inflammatory change, consistent with cystitis.
2. Hyperattenuating material within the urinary bladder, which may represent hemorrhage. Bladder mass is difficult to exclude.
3. Mild bilateral hydronephrosis and bilateral hydroureter. No obstructing stones appreciated.
4. Renal cortical atrophy, right greater than left.
5. Prostatic enlargement.
--- NOTE | 2024-11-17 10:42 | W.PN.HOSP.TC ---
Today's Communication/Plan
-
follow Urology recs for CBI/irrigation
follow ID recs for Abx
probably downgrade later if stable
Assessment / Plan
Assessment / Plan
Assessment:
Sepsis (fever, tachycardia) from E. Coli CAUTI - present on arrival
E. coli and Serratia (both multi-drug resistant) bacteremia
- continue IV Rocephin, day 3 per ID
Gross hematuria from Heredia trauma
BPH/urinary retention with chronic Heredia
- CT: shows bladder wall thickening and adjacent inflammatory change consistent with cystitis. Hyperattenuating material within the bladder, may represent hemorrhage. Bladder mass cannot be ruled out. Mild bilateral hydronephrosis and bilateral
hydroureter. No obvious stones. Prostatic enlargement.
- CBI, prn irrigations per Urology
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 Baseline creatinine unknown. Creatinine down to 1.5, monitor for now.
Hyponatremia - hypovolemic versus SIADH related to bleeding. Sodium improving.
Hypokalemia - improved. Magnesium normal.
Hyperglycemia - hemoglobin A1c 5.4%
GERD
Cognitive impairment -unknown type.
DVT ppx: SCDs
Code: Full
Anticipated Discharge: > 48 hours
Subjective/Interval History
-
Date of Service: November 17, 2024
Febrile last evening, with associated tachycardia, improved with Tylenol
No fevers today
currently CBI not running
Objective Data
-
Labs:
Laboratory Results
11/17/24
05:24
WBC 6.5
Hgb 8.8 L
Hct 25.9 L
Plt Count 175
Sodium 135
Potassium 3.7
Chloride 99
Carbon Dioxide 28
BUN 16
Creatinine 1.6 H
Glucose 102 H
Calcium 8.7
Vital Signs:
Vital Signs
Temp Pulse Resp BP Pulse Ox
98.9 F 80 20 132/84 97
11/17/24 07:48 11/17/24 06:00 11/17/24 06:00 11/17/24 06:00 11/17/24 06:00
I&O
11/16/24 11/17/24 11/18/24
06:59 06:59 06:59
Intake Total 2735 / 2735 750 / 750 360 / 360
Output Total 7550 / 7550 9150 / 9150 1150 / 1150
Balance -4815 / -4815 -8400 / -8400 -790 / -790
Physical Exam
-
General: No Apparent Distress
HEENT: Normocephalic and Atraumatic
Respiratory: Negative Wheezes
Cardiac: Regular Rhythm
GI: Soft and Nontender
Genito-urinary: Bloody Urine and Heredia
Musculoskeletal: No Edema
Neuro: AO x 3
Psych: Calm
Data Reviewed
-
Total Time Spent with Patient (in minutes): 41
Labs: Labs Reviewed by me
[2024-11-17] MEDS: STERILE WATER FOR INJECTION 10 ML IV (11:47)
[2024-11-17] MEDS: FLUSH (NSS) 1 FLUSH IV ×2 (11:47)
[2024-11-17] MEDS: ROCEPHIN 1000 MG IV (11:47)
--- NOTE | 2024-11-17 12:01 | PN.CDI ---
CDI
- -
CDI:
Physician Documentation Request
Admit Date: 11/15/24 03:06
Dear Doctor Timmy,
Please review the following and provide your response in the progress notes.
Clinical Indicators:
- Patient admit for sepsis due to CAUTI
- 11/17 PN 'Gross hematuria from Heredia trauma'
- 5L IVF given
Laboratory Tests
11/15/24 11/15/24 11/15/24
00:09 05:22 12:34
Hgb 12.8 L 10.5 L 10.0 L
11/15/24 11/16/24 11/17/24
20:26 05:01 05:24
Hgb 9.2 L 8.9 L 8.8 L
Please clarify the appropriate diagnosis that supports the above lab abnormalities and additional evaluation, monitoring and/or treatment rendered:
Anemia, due to acute blood loss and hemodilution
Anemia due to hemodilution only
Clinically insignificant abnormal lab values
Other (please specify)
Use of terms such as suspected, likely, concern for, or probable (associated with a specific diagnosis that is being evaluated, monitored, or treated as if it exists) are acceptable and can be coded in the inpatient setting, when documented at the
time of discharge.
Thank you,
Yasmin Tse RN
CDI Specialist
Please use your independent medical judgment in providing your response.
--- NOTE | 2024-11-17 14:07 | PTCARENOTE ---
Assumed care of patient at beginning of this shift from previous RN with CBI clamped. Bloody/blood tinged urine noted in roland bag. Dr Church up to see patient; verified that CBI is to remain clamped at this time. OOB to chair with PT/OT.
--- NOTE | 2024-11-17 15:39 | W.PN.URO.CBU ---
Today's Communication / Plan
-
Maintain roland with CBI clamped
Continue abx for bacteremia/urosepsis
Trend creatinine
Outpatient urology follow up
Assessment / Plan
-
69M with BPH/prostatomegaly and chronic roland catheter
Presented with gross hematuria and urosepsis, likely catheter trauma
CT showing 130cc prostate volume with large intravesical median lobe, bilateral moderate hydroureteronephrosis to level of bladder without acute obstruction
- Bladder flushed with removal of some residual clot debris
- CBI clamped with urine clearing today. No residual active bleeding.
- Antibiotics for urosepsis - E coli on urine culture. Continue abx for 7 day course
- Hydronephrosis likely due to urinary retention/poor catheter placement prior to admission. No stones or obstruction
- Consider reimaging if renal function not improved. Unknown baseline creatinine
- Maintain roland catheter at discharge. Recommend follow up with his prior urologist who performed past procedures if that information is available at custodial
Diagnosis
-
Date of Service: November 17, 2024
-
Patient Diagnosis:
Gross hematuria
BPH
Urinary retention with chronic roland catheter
Post Op Day:
Subjective
-
No events overnight
Objective
-
Vital Signs
Temp Pulse Resp BP Pulse Ox
98.8 F 93 27 118/79 98
11/17/24 15:19 11/17/24 14:00 11/17/24 14:00 11/17/24 14:00 11/17/24 10:17
Intake and Output
11/16/24 11/17/24 11/18/24
06:59 06:59 06:59
Intake Total 2735 / 2735 750 / 750 360 / 360
Output Total 7550 / 7550 9150 / 9150 700 / 700
Balance -4815 / -4815 -8400 / -8400 -340 / -340
Intake:
Oral fluids 360 / 360 360 / 360
IV fluids (Total) 2375 / 2375 750 / 750
Lr 1,000 ml @ 125 mls/hr IV . 875 / 875
Q8H KRISS Rx#:[id number]
nss 1500 / 1500
Roland intermittent irrigation 0 / 0
Output:
Urine, Roland 5050 / 5050 6200 / 6200 700 / 700
True Urine Output from CBI 2500 / 2500 2950 / 2950
Laboratory Results
11/17/24 05:24
11/17/24 05:24
Physical Exam
-
General - well developed, well nourished, no acute distress
Chest - clear
Abdomen - soft, non-tender
- roland in place, light red off CBI
Skin - warm & dry with no rash
--- NOTE | 2024-11-17 17:21 | PTCARENOTE ---
Patient with decreased urinary output; bladder scan showed 167ml. TT sent to Dr Church who instructed to replace current 18 northern irish roland with 20 northern irish 2-way roland and irrigate as needed if there's still some old clot. Catheter changed; no immediate
urinary output. Hand irrigated with 30ml; punch colored return with few small clots. Patient denied pain or discomfort. TT sent to Dr Church to make him aware.
--- NOTE | 2024-11-17 18:17 | PTCARENOTE ---
Dr Church returned TT and made aware 50ml in bag and bladder scan only showed 1ml. He stated he will be in tomorrow to flush thoroughly again. Will report to shift superintendent RN.
[2024-11-17] MEDS: SENOKOT PO (21:33)
[2024-11-18] VITALS (9 sets, daily range): BP systolic 106–131; BP diastolic 70–85; BMI 23.8
--- NOTE | 2024-11-18 00:33 | PTCARENOTE ---
Assumed care for patient overnight, received report from prashant RN. Roland draining bloody urine with visibly blood clots in the bag. Dark blood and light blood noted around the urethral area. Cleaned around the catheter and urethral area. GROUNDS KEEPER
Neeta made aware, and saw the patient bedside to assess. Manually irrigated roland with 30ml. Catheter irrigated smoothly, pt denies any discomfort or pain. When asked if this blood in new patient states 'no'. Advised to monitor output and ensure
patency. Pt had one episode of incontinence and had 1 large loose BM. Pt NS on tele. 95% on room air. Call bray is within reach.
[2024-11-18 05:20] LABS: Hematocrit 27.3 % (39.0-52.0); Hemoglobin 9.1 g/dL (13.0-18.0); Mean Corp Hgb Conc. 33.3 g/dL (33.0-37.0); Mean Corpuscular Hgb 29.1 pg (27.0-31.0); Mean Corpuscular Volume 87.2 fL (80.0-94.0); Mean Platelet Volume 9.4 fL (7.4-10.4); Platelet Count 213 10^3/uL (130-400); Red Blood Cell Count 3.13 10^6/uL (4.70-6.10); Red Cell Dist. Width 13.9 % (11.5-14.5); White Blood Cell Count 5.7 10^3/uL (4.8-10.8)
[2024-11-18 05:28] LABS: Blood Urea Nitrogen 19 mg/dl (9-20); Calcium 8.8 mg/dl (8.4-10.2); Carbon Dioxide 25 mmol/L (22-30); Chloride 98 mmol/L (98-107); Estimated Creatinine Clearance 37 ml/min; Glucose 106 mg/dl (70-99); Potassium 3.9 mmol/L (3.5-5.1); Sodium 133 mmol/L (135-145); eGFR 46.64
--- NOTE | 2024-11-18 06:15 | PTCARENOTE ---
Heredia irrigated with no resistance, pt denied any pain. Urethra had dark red blood. Heredia draining dark deb blood tinged urine.
[2024-11-18] MEDS: FLOMAX 0.4 MG PO (08:35)
--- NOTE | 2024-11-18 08:51 | W.PN.URO.CBU ---
Today's Communication / Plan
-
Hematuria resolved
Maintain roland at discharge
Renal US to re-eval hydronephrosis
Assessment / Plan
-
69M with BPH/prostatomegaly and chronic roland catheter
Presented with gross hematuria and urosepsis, likely catheter trauma
CT showing 130cc prostate volume with large intravesical median lobe, bilateral moderate hydroureteronephrosis to level of bladder without acute obstruction
- Hematuria resolved with clear urine off CBI since yesterday AM. Some debris flushed by nursing yesterday evening
- Antibiotics for urosepsis - E coli on urine culture. Continue abx for 7 day course
- Hydronephrosis likely due to urinary retention/poor catheter placement prior to admission. No stones or obstruction
- Recommend renal US since renal function not improved. Unknown baseline creatinine so may be CKD or SANTA
- Maintain roland catheter at discharge. On discussion with patient this morning, he would prefer to maintain a roland catheter rather than undergo any additional procedures for his prostate. Outpatient follow up PRN or with his prior urologist.
Continue routine catheter changes at MD
Diagnosis
-
Date of Service: November 18, 2024
-
Patient Diagnosis:
Gross hematuria
BPH
Urinary retention with chronic roland catheter
Catheter trauma
Post Op Day:
Subjective
-
No issues overnight
Objective
-
Vital Signs
Temp Pulse Resp BP Pulse Ox
99.0 F 86 22 131/73 98
11/18/24 00:28 11/18/24 06:00 11/18/24 06:00 11/18/24 06:00 11/18/24 00:00
Intake and Output
11/17/24 11/18/24 11/19/24
06:59 06:59 06:59
Intake Total 750 / 750 360 / 360
Output Total 9150 / 9150 2424 / 2424
Balance -8400 / -8400 -2064 /
Intake:
Oral fluids 360 / 360
IV fluids (Total) 750 / 750
Output:
Urine, Roland 6200 / 6200 2424 / 2424
True Urine Output from CBI 2950 / 2950
Laboratory Results
11/18/24 04:35
11/18/24 04:35
Physical Exam
-
General - well developed, well nourished, no acute distress, apparent dementia
Chest - clear
Abdomen - soft, non-tender
- roland in place, clear urine
[2024-11-18] MEDS: SENOKOT PO (09:42)
[2024-11-18] MEDS: COLACE PO (09:42)
[2024-11-18] MEDS: ROCEPHIN 1000 MG IV (09:46)
[2024-11-18] MEDS: STERILE WATER FOR INJECTION 10 ML IV (09:46)
[2024-11-18] MEDS: FLUSH (NSS) 1 FLUSH IV ×2 (09:47→09:48)
--- NOTE | 2024-11-18 12:31 | W.PN.ID1 ---
Date of Service
Date of Service: November 18, 2024
Today's Communication
- Continue ceftriaxone (d5).
-At time of discharge, can transition to Bactrim DS 1 tab bid (dose for CrCl>30) through 11/23/24.
Assessment / Plan
# Serratia, E. coli bacteremia - urinary retention source with dislodged roland
# Gross hematuria from roland trauma
# Leukocytosis - resolved
# BPH/urinary retention with chronic roland
- CT a/p mild bilateral hydroureteronephrosis from urinary retention
- Continue ceftriaxone (d5).
-At time of discharge, can transition to Bactrim DS 1 tab bid (dose for CrCl>30) through 11/23/24.
Chief Complaint
-: UTI and Bacteremia
Vital Signs / Physical Exam
Vital Signs
Vital Signs
Temp Pulse Resp BP Pulse Ox
97.9 F 93 20 111/70 98
11/18/24 11:05 11/18/24 10:00 11/18/24 10:00 11/18/24 10:00 11/18/24 11:52
Physical Exam
Constitutional: No Acute Distress
Cardiovascular: Regular Rate and S1/S2
Pulmonary: Clear
Gastrointestinal: Soft, Non Tender and Non Distended
Genito-Urinary: Roland and Clear Urine
Objective Data
Lab Data
Lab Results
11/18/24 04:35
11/18/24 04:35
Estimated Creat Clear 37 ml/min 11/18/24 04:35
Lactic Acid 1.6 mmol/L (0.7-2.0) 11/15/24 03:39
Total Bilirubin 0.4 mg/dl (0.2-1.3) 11/15/24 00:09
AST 25 U/L (17-59) 11/15/24 00:09
ALT 15 U/L (0-50) 11/15/24 00:09
Alkaline Phosphatase 108 U/L (38-126) 11/15/24 00:09
Most recent labs reviewed.
Micro Results:
11/15/24 00:09 Blood Culture - Final
Blood/Venous Serratia marcescens
Escherichia coli
Gram Stain - Final
11/15/24 00:09 Blood Culture - Preliminary
Blood/Venous Escherichia coli
Gram Stain - Preliminary
11/15/24 00:13 Urine Culture - Final
Urine Escherichia coli
11/15/24 05:22 MRSA Screen - Final
Nose No Methicillin Resistant Staphylococcus aureus isolated.
11/15/24 00:09 Influenza Types A & B (SAAD) - Final
Nasal Swab Negative for Influenza A & B, NAAT
Negative results must be combined with clinical observations
and patient history.
Nucleic Acid Amplification test (NAAT)performed on the
Sanrad platform.
11/15/24 CT a/p: Bladder wall thickening and adjacent inflammatory change, consistent with cystitis.
2. Hyperattenuating material within the urinary bladder, which may represent hemorrhage. Bladder mass is difficult to exclude.
3. Mild bilateral hydronephrosis and bilateral hydroureter. No obstructing stones appreciated.
4. Renal cortical atrophy, right greater than left.
5. Prostatic enlargement.
--- NOTE | 2024-11-18 13:25 | W.PN.HOSP.TC ---
Addendum entered and electronically signed by Jacquelin Warner MD 11/18/24 13:46:
Anemia, due to acute blood loss and hemodilution
Original Note:
Today's Communication/Plan
-
dc to SNF
Assessment / Plan
Assessment / Plan
Assessment:
Sepsis (fever, tachycardia) from E. Coli CAUTI - present on arrival
E. coli and Serratia (both multi-drug resistant) bacteremia
- dc on Bactrim DS 1 tab bid (dose for CrCl>30) through 11/23/24 per ID
Gross hematuria from Heredia trauma
BPH/urinary retention with chronic Heredia
- CT: shows bladder wall thickening and adjacent inflammatory change consistent with cystitis. Hyperattenuating material within the bladder, may represent hemorrhage. Bladder mass cannot be ruled out. Mild bilateral hydronephrosis and bilateral
hydroureter. No obvious stones. Prostatic enlargement.
- renal US: No findings to suggest renal collecting system dilatation bilaterally
- resolved
- continue Heredia
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 Baseline creatinine unknown. Creatinine down to 1.5, monitor for now.
Hyponatremia - hypovolemic versus SIADH related to bleeding. Sodium improving.
Hypokalemia - improved. Magnesium normal.
Hyperglycemia - hemoglobin A1c 5.4%
GERD
Cognitive impairment -unknown type.
DVT ppx: SCDs
Code: Full
More than 30 minutes spent in discharge including
Final examination of the patient
Summarizing hospital stay
Instructions for continuing care to all relevant caregivers
Preparation of discharge records, prescriptions, and referral forms
Total time spent (in minutes):41
Anticipated Discharge: Today
Subjective/Interval History
-
Date of Service: November 18, 2024
off CBI and hematuria resolved
repeat US without hydronephrosis
no fevers
Objective Data
-
Labs:
Laboratory Results
11/18/24
04:35
WBC 5.7
Hgb 9.1 L
Hct 27.3 L
Plt Count 213 D
Sodium 133 L
Potassium 3.9
Chloride 98
Carbon Dioxide 25
BUN 19
Creatinine 1.6 H
Glucose 106 H
Calcium 8.8
Vital Signs:
Vital Signs
Temp Pulse Resp BP Pulse Ox
97.9 F 81 18 112/80 98
11/18/24 11:05 11/18/24 12:00 11/18/24 12:00 11/18/24 12:00 11/18/24 11:52
I&O
11/17/24 11/18/24 11/19/24
06:59 06:59 06:59
Intake Total 750 / 750 360 / 360
Output Total 9150 / 9150 2425 / 2425 600 / 600
Balance -8400 / -8400 -2065 / -2065 -600 / -600
Physical Exam
-
General: No Apparent Distress
HEENT: Normocephalic and Atraumatic
Respiratory: Negative Wheezes
Cardiac: Regular Rhythm and S1/S2
Genito-urinary: Heredia
Neuro: AO x 3
Psych: Calm
Data Reviewed
-
Total Time Spent with Patient (in minutes): 41
Labs: Labs Reviewed by me
--- NOTE | 2024-11-18 14:23 | PTCARENOTE ---
This nurse called and gave report to Simi at [facility]. Per Simi, patient received flu vaccine this season; vaccine marked not given in DEC.
--- NOTE | 2024-11-18 18:02 | CM ---
Patient from [facility] with Hx cognitive impairment. Room air. PT; min assist with contact guard for safety, return to SNF. OT; skilled rehab.
Met with patient who agreed to return to [facility] today. IMM completed.
Spoke with Jennifer, s [facility]; they are able to accept the patient back today. The for report [phone] 3rd floor, fax [phone].
Ambulance requested due to cognitive impairment, and impaired safety awareness, as well as .
Plan return to [facility] today by ambulance.
--- NOTE | 2024-11-19 07:37 | W.DS.TRANS ---
DC Summary - Wagon Winder
-
Discharge Instructions:
Discharge Diagnosis/Procedures hematuria from Heredia trauma requiring CBI,
sepsis, UTI, bacteremia
Diet Low Cholesterol
Activity As tolerated
Instructions:
Stand-Alone Forms:
Changes to Home Medications: No
Discharge Medications:
DC Medications w/original date entered in [facility]
acetaminophen 325 mg tablet 650 mg PO Q6H PRN temp >100.4/ mild pain 11/15/24
bisacodyl 10 mg rectal suppository 10 mg OK DAILY PRN constipation 11/15/24
cholecalciferol (vitamin D3) 25 mcg (1,000 unit) tablet 25 mcg PO DAILY Supplement 11/15/24
docusate sodium 100 mg tablet 100 mg PO BID Constipation 11/15/24
magnesium hydroxide 400 mg/5 mL oral suspension (Milk of Magnesia) 30 ml PO DAILY PRN no BM in 3 days 11/15/24
nystatin 100,000 unit/gram topical powder 1 applic topical BID Infection 11/15/24
omeprazole magnesium 20 mg tablet,delayed release (Prilosec OTC) 20 mg PO DAILY Gastrointestinal Issue 11/15/24
sennosides 8.6 mg tablet 8.6 mg PO BID Constipation 11/15/24
sodium phosphates 19 gram-7 gram/118 mL enema (Fleet Enema) 118 ml OK DAILYPRN PRN if suppository ineffective 11/15/24
tamsulosin 0.4 mg capsule 0.4 mg PO BID Urinary Issue 11/15/24
sulfamethoxazole 800 mg-trimethoprim 160 mg tablet (Bactrim DS) 1 tab PO BID #10 tabs 11/18/24
Home Medication Changes
Pending Results: No
Total time spent discharging patient (in min): 41
== END 2024-11-18 19:13 | DRG 698 ==
LOC: IMU 03:06
PROVIDERS: Hospitalist; Physician Assistant; ADMITTING PHYSICIAN Hospitalist; ATTENDING PHYSICIAN Internal Medicine; CONSULT PHYSICIAN Internal Medicine Infectious Disease; CONSULT PHYSICIAN Urology; EMERGENCY PHYSICIAN Emergency Medicine
DX: T83.511A Infection and inflammatory reaction due to indwelling urethral catheter, initial encounter (principal); A41.51 Sepsis due to Escherichia coli [E. coli]; Z16.24 Resistance to multiple antibiotics; N13.6 Pyonephrosis; E87.1 Hypo-osmolality and hyponatremia; N17.9 Acute kidney failure, unspecified; D62 Acute posthemorrhagic anemia; T83.83XA Hemorrhage due to genitourinary prosthetic devices, implants and grafts, initial encounter; Y84.6 Urinary catheterization as the cause of abnormal reaction of the patient, or of later complication, without mention of misadventure at the time of the procedure; R31.0 Gross hematuria; N40.1 Benign prostatic hyperplasia with lower urinary tract symptoms; R33.8 Other retention of urine; E87.6 Hypokalemia; K21.9 Gastro-esophageal reflux disease without esophagitis; Z11.52 Encounter for screening for COVID-19; N32.0 Bladder-neck obstruction; Z90.79 Acquired absence of other genital organ(s)
CPT/HCPCS: 51702; 71045; 74176; 76775; 80048; 80053; 81003; 81015; 83036; 83605; 83735; 85014; 85018; 85025; 85027; 87040; 87070; 87077; 87086; 87149; 87186; 87205; 87502; 87811; 93005; 96361; 96365; 96367; 96375; 97116; 97163; 97167; 97535; 99285

== ENCOUNTER 2024-12-01 08:46 | Emergency (ER) | payer MEDICARE, OTHER, SELFPAY ==
[2024-12-01 08:52] VITALS: BP 124/80; BMI 24.1
[2024-12-01 08:53] VITALS: BP 124/80
--- NOTE | 2024-12-01 09:06 | ED.GENMED ---
History of Present Illness
General
Chief Complaint: Abdominal Symptoms
Source: patient
Time Seen by Provider: 12/01/24 08:48
History of Present Illness
History of Present Illness:
69-year-old male presents to the emergency room from nursing facility complaining of nausea vomiting. Symptoms have been present the past day. No diarrhea. Patient denies abdominal pain. He denies any other complaints. Patient was hospitalized
recently for urinary retention and was discharged with a Heredia catheter. He states his catheter has been draining.
Past History
Past History
ED Past Medical History: Other (malnutrition, BPH)
ED Past Surgical History: Other
Social History
Tobacco: Other
Alcohol: Other
Drug: Other
Personal: Single
Living: senior care
Employment: Other
Family History
Family History: Unable to obtain
Phy Exam
Physical Exam
Physical Exam:
General: Slow to respond but awake, Alert, Oriented X3. No acute distress.
Vitals: unremarkable
Head: Atraumatic
Eyes: Pupils equal, EOMI
Throat: Airway intact, no exudates
Neck: Trachea midline
Lungs: Clear and equal b/l
Heart: Regular rate, no murmurs
Abd: Soft, Nontender, No pulsatile mass
Genitalia: Normal external genitalia, Heredia catheter in place connected to a leg bag. scant urine in the leg bag
Neuro: Nonfocal
Skin: Warm, dry, no rash
Extremities: pulses equal b/l, no edema
Course
Orders/Labs/Results
Orders:
Orders
12/01/24 08:57
Complete Blood Count/With Diff Urgent
Comprehensive Metabolic Panel Urgent
Lipase Urgent
Abnormal Lab Results
12/01/24
08:57
WBC 4.2 L 10^3/uL
(4.8-10.8)
RBC 3.31 L 10^6/uL
(4.70-6.10)
Hgb 9.9 L g/dL
(13.0-18.0)
Hct 28.8 L %
(39.0-52.0)
RDW 14.6 H %
(11.5-14.5)
Absolute Lymphs (auto) 0.9 L 10^3/uL
(1.2-3.4)
Monocytes % 13.2 H %
(1.7-9.3)
Sodium 132 L mmol/L
(135-145)
Creatinine 1.6 H mg/dL
(0.7-1.3)
Glucose 102 H mg/dl
(70-99)
12/01/24 08:57
12/01/24 08:57
Vital Signs
Initial and Last Documented VS:
Initial Vital Signs
Temp Pulse Resp BP Pulse Ox
98.3 F 87 20 124/80 99
12/01/24 08:52 12/01/24 08:52 12/01/24 08:52 12/01/24 08:52 12/01/24 08:52
Last Documented Vital Signs
Temp Pulse Resp BP Pulse Ox
98.3 F 81 17 129/80 97
12/01/24 08:52 12/01/24 11:39 12/01/24 11:39 12/01/24 11:39 12/01/24 11:00
MDM/Problems Addressed
Differential Diagnosis Includes:
Gastroenteritis, gastritis
MDM/Problems Addressed:
Patient's work appears unremarkable. He is asymptomatic here in the emergency room. Heredia is draining properly. No indication for hospitalization. Patient discharged back to his facility
*Pulse Oximetry
Patient hypoxic: no
*Critical Care Note
Total Time (30-74mins, 75-104mins- exclusive of procedures): Not Applicable
ED Attending Note
-
Portions of this chart may have been created with voice recognition software.� Occasional wrong word or��sound alike� substitutions may have occurred due to the inherent limitations of voice recognition software.
Discharge Plan
Departure
Patient Disposition: Alf/SNF
Date of Disposition: 12/01/24
Time of Disposition: 10:36
Patient with high blood pressure during this ER visit?: No
Condition: Good
Discharge Problem:
Nausea & vomiting
Instructions: Nausea and Vomiting, Adult (DC)
Prescriptions:
New
ondansetron 4 mg tablet,disintegrating
4 mg PO DAILY PRN (Reason: nausea and vomiting) Qty: 10 0RF
No Action
acetaminophen 325 mg Tablet
650 mg PO Q6H PRN (Reason: temp >100.4/ mild pain)
sennosides 8.6 mg Tablet
8.6 mg PO BID
magnesium hydroxide [Milk of Magnesia] 400 mg/5 mL Suspension
30 ml PO DAILY PRN (Reason: no BM in 3 days)
tamsulosin 0.4 mg Capsule
0.4 mg PO BID
bisacodyl 10 mg Suppository
10 mg NM DAILY PRN (Reason: constipation)
Fleet Enema 19-7 gram/118 mL Enema
118 ml NM DAILYPRN PRN (Reason: if suppository ineffective)
nystatin 100,000 unit/gram Powder
1 applic TOPICAL BID
Rx Instructions:
apply to groin day and evening shift for candidiasis
docusate sodium 100 mg Tablet
100 mg PO BID
omeprazole magnesium [Prilosec OTC] 20 mg Tablet,Delayed Release (Dr/Ec)
20 mg PO DAILY
cholecalciferol (vitamin D3) 25 mcg (1,000 unit) Tablet
25 mcg PO DAILY
sulfamethoxazole-trimethoprim [Bactrim DS] 800-160 mg tablet
1 tab PO BID Qty: 10 0RF
Rx Instructions:
starting 11/19/24
Referrals:
Balaji Ward, DO [Family Provider] -
Interventions
Interventions:
*Risk Screen - Suicide Last Done: 12/01/24 08:52
*General Assessment Last Done: 12/01/24 08:52
*Neglect/Abuse Screening Last Done: 12/01/24 08:52
*Nursing Disposition Last Done: 12/01/24 12:24
OG-Thdpms-Jajnxrnmul Assessment Last Done: 12/01/24 08:55
Discharge Date and Time
Discharge Date/Time: 12/01/24 12:25
Print Language: [place]
[2024-12-01 09:15] LABS: % Basophils 0.2 % (0-2); % Eosinophils 0.7 % (0-6); % Immature Granulocytes 0.5 % (0-0.5); % Lymphocytes 20.8 % (20.5-51.1); % Monocytes 13.2 % (1.7-9.3); % Neutrophils 64.6 % (42.2-75.2); Absolute Lymphocytes 0.9 10^3/uL (1.2-3.4); Absolute Monocytes 0.6 10^3/uL (0.1-0.6); Absolute Neutrophils 2.7 10^3/uL (1.4-6.5); Hematocrit 28.8 % (39.0-52.0); Hemoglobin 9.9 g/dL (13.0-18.0); Mean Corp Hgb Conc. 34.4 g/dL (33.0-37.0); Mean Corpuscular Hgb 29.9 pg (27.0-31.0); Nucleated Red Blood Cells % 0 % (-); Platelet Count 366 10^3/uL (130-400); Red Blood Cell Count 3.31 10^6/uL (4.70-6.10); Red Cell Dist. Width 14.6 % (11.5-14.5); White Blood Cell Count 4.2 10^3/uL (4.8-10.8)
[2024-12-01 09:37] LABS: ALT (SGPT) 13 U/L (0-50); AST (SGOT) 24 U/L (17-59); Albumin 4.1 g/dl (3.5-5.0); Alkaline Phosphatase 72 U/L (38-126); Blood Urea Nitrogen 20 mg/dl (9-20); Carbon Dioxide 26 mmol/L (22-30); Chloride 98 mmol/L (98-107); Estimated Creatinine Clearance 38 ml/min; Glucose 102 mg/dl (70-99); Lipase 129 U/L (23-300); Potassium 4.2 mmol/L (3.5-5.1); Sodium 132 mmol/L (135-145); Total Bilirubin 0.6 mg/dl (0.2-1.3); eGFR 46.64
[2024-12-01 10:00] VITALS: BP 116/75
[2024-12-01 11:00] VITALS: BP 116/79
[2024-12-01 11:39] VITALS: BP 129/80
== END 2024-12-01 12:25 ==
LOC: EMR 08:46
PROVIDERS: EMERGENCY PHYSICIAN Emergency Medicine; FAMILY PHYSICIAN Internal Medicine
DX: R11.2 Nausea with vomiting, unspecified (principal); N40.1 Benign prostatic hyperplasia with lower urinary tract symptoms; Z96.0 Presence of urogenital implants
CPT/HCPCS: 99283; 80053; 83690; 85025